=== PATIENT | male | born 1965 | race African-American/Black ===

== ENCOUNTER 2017-08-08 12:21 | Emergency (ER) | payer SELFPAY ==
[~2017-08-08] VITALS: Ht 190.5 cm; Wt 107.0 kg
[2017-08-08 12:23] VITALS: Ht 190.5 cm; Wt 107.0 kg
[2017-08-08 14:50] VITALS: BP 142/74
== END 2017-08-08 14:50 | disposition home or self-care (01) ==
LOC: ED 12:21
DX: S06.0X9A Concussion with loss of consciousness of unspecified duration, initial encounter (principal); M25.562 Pain in left knee; R03.0 Elevated blood-pressure reading, without diagnosis of hypertension; W18.39XA Other fall on same level, initial encounter; Y93.89 Activity, other specified; Y92.89 Other specified places as the place of occurrence of the external cause; Y99.8 Other external cause status
CPT/HCPCS: J1885

== ENCOUNTER 2020-09-01 21:12 | Inpatient (IN) | payer OTHER, SELFPAY ==
[~2020-09-01] VITALS: Ht 190.5 cm; Wt 98.1 kg
--- NOTE | 2020-09-01 21:49 | NUR ---
RT BEDSIDE FOR ABG
[2020-09-01 22:09] LABS: BASOPHIL % 0.4 % (0.2-1.5); PLATELET COUNT 188 x10^3mcL (152-348); RED CELL DISTRIBUTION WIDTH 14.2 % (12.1-16.2)
[2020-09-01 22:21] LABS: UA SPECIFIC GRAVITY >=1.030 (1.005-1.035); microscopic required? YES; urine erythrocyte TRACE (NEGATIVE)
[2020-09-01 23:22] LABS: CALCIUM 8.6 mg/dL (8.5-10.1); CARBON DIOXIDE 26.4 mmol/L (21-32); CHLORIDE SERUM 106 mmol/L (98-107); CREATININE SERUM 1.1 mg/dL (0.7-1.3); GFR1 > 60 mL/min; GLUCOSE SERUM 126 mg/dL (74-106); POTASSIUM SERUM 3.6 mmol/L (3.5-5.1); SODIUM SERUM 141 mmol/L (136-145)
[2020-09-01 23:27] LABS: ALKALINE PHOSPHATASE 74 U/L (46-116); ALT/SGPT 51 U/L (16-63); AST/SGOT 22 U/L (15-37); BILIRUBIN TOTAL 0.4 mg/dL (0.20-1.00); C REACTIVE PROTEIN 0.7 mg/dL (<=0.9); LACTIC DEHYDROGENASE (LDH) 232 U/L (100-190); TOTAL PROTEIN, SERUM 7.2 g/dL (6.4-8.2)
[2020-09-01 23:28] LABS: ALBUMIN 3.2 g/dL (3.4-5.0)
--- NOTE | 2020-09-01 23:57 | NUR ---
PT TAKEN TO CT SCAN
--- NOTE | 2020-09-02 00:07 | NUR ---
PT RETURN FROM CT SCAN
--- NOTE | 2020-09-02 00:58 | NUR ---
PT LAYING IN POSITION OF COMFORT, IN NO ACUTE DISTRESS AT THIS TIME, AAO TO PERSON, PLACE, TIME, AND PURPOSE, ON FULL MEDICAL BILLER/CODER VITAL SIGNS STABLE, 2L NS BOLUS INFUSING, AND AZITHROMYCIN 500mg INFUSING AT 250mL/HR, BED IN LOW POSITION AND LOCKED, BOTH SIDE RAILS UP, CALL LIGHT WITHIN REACH, PROVIDED PT WITH A WARM BLANKET.
--- NOTE | 2020-09-02 01:25 | NUR ---
PT MEDICATED PER MD ORDER, DECADRON 10mg IVP, PT TOLERATED WITHOUT ANY INCIDENTS.
--- NOTE | 2020-09-02 01:40 | NUR ---
REPORT GIVEN TO MARVIN SUN, AWAITING BELKIS RESULTS.
--- NOTE | 2020-09-02 01:45 | NUR ---
RECEIVED CALL FROM PHARMACY REGARDING DR. ROLAND ORDER FOR VANCOMYCIN, PHARMACY RECOMMENDED VANCOMYCIN DOSE OF 1000mg x1 OR WAIT FOR AM PHARMACY, CALLED DR. ROLAND REGARDING PHARMACY RECOMMENDATION, DR. ROLAND VERBAL ORDER TO WAIT FOR AM PHARMACY.
--- NOTE | 2020-09-02 02:48 | NUR ---
recevied pt from ED on gurnry. pt transferred with rn's present. pt a/o x4, denies pain or chest pain. pt on 5l nc and saturation 98%. tele 51 with NSR.pt pleasant and cooperative, presents with mild sob when talking but no acute distress. pt reports BM yesterday before admission to ED. All needs met at this time, bed low and locked with call light in reach. Overseeing preceptee Maribeth in care for pt. will continue to monitor
[2020-09-02 04:51] VITALS: BP 125/74
--- NOTE | 2020-09-02 05:07 | NUR ---
PT TOLERATING NC WELL AT 5L. NO ACUTE DISTRESS. PT RUNNING ABX PER ORDER IN LAC AND TOLERAING WELL. NO OTHER CONCERNS AT THIS TIME, WILL CONTINUE TO MONITOR AND PREPARE TO ENDORSE CARE TO DAY RN
--- NOTE | 2020-09-02 05:35 | NUR ---
I HAVE OVERVEIWED CARE AND DOCUMENTATION OF ASHLEIGH SETH RN, I AGREE WITH ALL CHARTING.
[2020-09-02 05:52] VITALS: BP 113/64
--- NOTE | 2020-09-02 07:30 | NUR ---
PT IS AAOX4, TELE [address] READING NSR, HR 72. RESP E/U. ON 02 N/C AT 5LPM. LUNG SOUNDS DIMINISHED BILATERAL BASES. IVF RUNNING TO LAC. SITE FLUSHED AND PATENT, DRESSING CDI. PT DENIES PAIN. CALL LIGHT WITHIN REACH. BED IN LOWEST POSITION.
[2020-09-02 09:12] VITALS: BP 121/61
[2020-09-02 12:05] VITALS: BP 125/71
--- NOTE | 2020-09-02 13:04 | NUR ---
ZOSYN IVPB INITIATED AT THIS TIME. RESP EVEN AND UNLABORED. PT
--- NOTE | 2020-09-02 13:16 | NUR ---
PT TITRATED TO 3LPM, O2 SAT AT 96%. RESP EVEN AND UNLABORED. NO RESP DISTRESS NOTED. SCHEDULED ZOSYN IVPB INITIATED. DENIES PAIN. WILL CONTINUE TO MONITOR.
--- NOTE | 2020-09-02 14:03 | NUR ---
REPORTED TO DR. ROSE PT'S LACTIC ACID NOW 3.7. NO NEW ORDERS.
--- NOTE | 2020-09-02 15:37 | NUR ---
1000ML FLUID BOLUS INITITATED AT THIS FOR LACTIC ACID 3.7.
--- NOTE | 2020-09-02 17:18 | NUR ---
REPORTED TO DR. RUIZ THAT PT HAS DUPLICATE LACTIC ACID ORDER. DR. RUIZ STATED TO D/C ORDER. NO NEW LACTIC ORDER IS NEEDED AT THIS TIME. IF ONE IS NEEDED IT WILL BE ORDERED IN THE MORNING. ORDER CARRIED OUT.
[2020-09-02 18:23] VITALS: BP 117/70
--- NOTE | 2020-09-02 18:29 | NUR ---
RESP EVEN AND UNLABORED. N/C 3LPM IN PLACE. NO RESP DISTRESS NOTED. TELE [address] READING NSR. IV CATH TO LAC S/L. FLUSHED AND PATENT. NO S/S OF INFECTION OR INFILTRATION. DENIES PAIN. CALL LIGHT WITHIN REACH. BED IN LOWEST POSITION. WILL ENDORSE ALL CARE TO ROSE GRADER RN.
[2020-09-02 19:21] VITALS: BP 124/65
--- NOTE | 2020-09-02 19:43 | NUR ---
RECEIVED PT FROM DAY SHIFT RN. PT ASLEEP, RESTING IN BED. NO ACUTE DISTRESS NOTED. PT IS CURRENTLY ON 3L NC WITH O2SAT @94%. PT HAS DIMINISHED LUNG SOUNDS IN BILAT BASES. PT DENIES ANY CHEST PAIN, SOB. DAY SHIFT RN PROVIDED TYLENOL @1950 FOR C/O OF HEADACHE. PT STATED HEADACHE WAS GOING AWAY. PT HAS IV IN LAC 20G. PATENT. ALL SAFETY MEASURES IN PLACE. BED IN LOWEST POSITION. CALL LIGHT WITHIN REACH. WILL CONTINUE TO MONITOR.
--- NOTE | 2020-09-02 20:07 | NUR ---
I AM OVERVIEWING CARE AND DOCUMENTATION OF PRECEPTEE DORINDA SUN. PT A/O X4 AND ON 3L NC WITH NO DISTRESS. PT STATES HE IS TIRED SINCE HE HASNT BEEN ABLE TO SLEEP. PT HAS MELATONIN SCHEDULED FOR PM MEDICATIONS. PT DENIES ANY PAIN AT THIS TIME, COMPAINTS OF HEADACHE DURING AM SHIFT. ALL NEEDS MET AT THIS TIME, WILL CONTINUE TO MONITOR AND OVERSEE CARE
--- NOTE | 2020-09-03 00:22 | NUR ---
PT RESTING IN ROOM, NO ACUTE DISTRESS NOTED. WILL CONTINUE TO MONITOR AT THIS TIME.
[2020-09-03 05:13] VITALS: Ht 190.5 cm; Wt 98.1 kg
[2020-09-03 05:16] VITALS: BP 110/62
--- NOTE | 2020-09-03 05:50 | NUR ---
I HAVE REVIEWED THE DOCUMENTATION AND CARE DONE BY DORINDA SUN AND AGREE WITH ALL CHARTING
--- NOTE | 2020-09-03 06:09 | NUR ---
PT SLEPT THROUGH THE NIGHT WITHOUT COMPLAINTS. PT CURRENTLY RESTING IN BED. PT IS ALERT AND ORIENTED X4. PT IS ON TELE#51 WITH NSR. PT HAS BILAT DIMINISHED LUNG SOUNDS IN BASES WITH CLEAR BREATH SOUNDS IN THE UPPER LOBES. PT IS CURRENTLY ON 3L NC WITH O2SAT AT 95%. NO ACUTE DISTRESS NOTED AT THIS TIME. PT HAS AN IV IN THE LAC 20G. IV INFUSING NS AT 10ML/HR. ALL SAFETY PRECAUTIONS IN PLACE. BED IN LOWEST POSITION. CALL LIGHT WITHIN REACH. WILL CONTINUE TO MONITOR.
[2020-09-03 07:09] LABS: BASOPHIL % 0.3 % (0.2-1.5); PLATELET COUNT 215 x10^3mcL (152-348); RED CELL DISTRIBUTION WIDTH 14.5 % (12.1-16.2)
[2020-09-03 07:20] LABS: CALCIUM 8.5 mg/dL (8.5-10.1); CHLORIDE SERUM 107 mmol/L (98-107); GFR1 > 60 mL/min; GLUCOSE SERUM 131 mg/dL (74-106); POTASSIUM SERUM 3.8 mmol/L (3.5-5.1); SODIUM SERUM 140 mmol/L (136-145)
[2020-09-03 08:00] VITALS: BP 138/79
--- NOTE | 2020-09-03 08:00 | NUR ---
RECEIVED PATIENT ALERT AND ORIENTED TIMES FOUR. PATIENT HAS BEEN WITH DIMINISHED BREATH SOUNDS BUT DENIES CHEST PAIN OR SOB AT THIS TIME. PATIENT HAS BEEN OOB AND TOLERATED WELL WITHOUT 02. PATIENT ON 02 VIA NASAL CANNULA AT 2 LITES AND WAS APPARENTLY ON 02 AT HOME AND PATIENT HAS STRONG PULSES, WITH ACTIVE BOWEL SOUNDS. [facility] AND RECEIVED REMDESIVIR AND CONVALESCANT PLASMA BOTH AT THIS TIME. VITALS ARE STABLE AT 138/74,94, 96, 97.7. PATIENT HAS BEEN WTIH NOTED LABS OF THE H AND H OF 10.02/23, AND THE PATIENT HAD RECEIVED BOLUS IN THE ER FOR SEPSI ON ARRIVAL. HE AHD BEEN ON VANCO AND ZOSN ANDNO ADVERSE REACTION NOTED. WILL CONTINUE TO MONITOR INDICTED.
--- NOTE | 2020-09-03 10:27 | NUR ---
PATIENT TOLERATED UP TO THE RESTROOM AND BACK ANDNO NOTED ACUTE RESPIRATORY DISTRESS NOTED.
--- NOTE | 2020-09-03 14:02 | NUR ---
PATIENT IMPLIES HE IS READY TO GO HOME. SO FAR NO ORDERS FOR DISCHARGE HAS BEEN RECEIVED. PATIENT CONTINUED ON THE VANCO AND THE ZOSYN ORDERED.
[2020-09-03 17:46] VITALS: BP 113/70
--- NOTE | 2020-09-03 19:31 | NUR ---
PATIENT LYING SUPINE TRACY POSITION AWAKE WATCHING TV. A/O X 4. FOLLOW COMMAND AND ABLE TO COMMUNICATE HIS NEEDS. TELE#51. ON 2L N/C WITH BUBBLER. DIMINISHED LUNG SOUNDS. O2 SAT 97%. NO ACUTE RESPIRATORY DISTRESS NOTED. NO EDEMA. PULSES +2 ON BUE AND BLE. AMBULATORY TO BATHROOM. LAST BM ON 09/03/20. VOIDS IN THE URINAL. SKIN INTACT. NO C/O PAIN AT THIS TIME. LFA #20G INTACT AND RUNNING 10 ML/HR NS TKVO. CALM AND COOPERATIVE. BED AT THE LOWEST POSITION. CALL LIGHT WITHIN REACH. WILL CONTINUE TO MONITOR.
--- NOTE | 2020-09-03 19:39 | NUR ---
PATIENT WANTED TO HOLD ON MELATONIN UNTIL 2300. WILL GIVE MELATONIN AT 2300 INSTEAD OF AT 2100. ALSO, PATIENT REFUSED THE COLACE FOR THIS SHIFT.
[2020-09-03 21:38] VITALS: BP 102/63
--- NOTE | 2020-09-04 03:47 | NUR ---
PATIENT STATED THAT HE WAS UNABLE TO FALL ASLEEP BECAUSE HE KEPT VOIDING ALL NIGHT. PATIENT WAS USING URINAL FOR VOIDING. EDUCATED PATIENT TO DRINK WATER TO FLUSH OUT ANTIBIOTICS. WILL CONTINUE TO MONITOR.
[2020-09-04 06:23] VITALS: BP 107/64
--- NOTE | 2020-09-04 06:38 | NUR ---
PATIENT UNABLE TO SLEEP COMFORTABLY. PATIENT ON 2 L N/C WITH BUBBLER. NO ACUTE RESPIRATORY DISTRESS DURING MIXING PLACE SUPERVISOR. CALM AND COOPERATIVE. EDUCATED PATIENT TO DRINK WATER TO NEGATE NEPHROTOXICITY OF ANTIBIOTICS ADMINISTERED. WILL ENDORSE TO THE INCOMING A.M. NURSE.
--- NOTE | 2020-09-04 08:00 | NUR ---
PATIENT AWARE HE IS BEING DISCHARGED BUT UNABLE TO GETA RIDE TILL FIVE TODAY.PATEINT HAS BEEN STABLE ANDNOINDICATION OF ACUTE RESPIRATORY DISTRESS. IV REMAINS IN PLACE. PATEINT HAS DIMINISHED BREATH SOUNDS AND BOWEL SOUNDS ACTIVE. TOLERATED OOB AND BRP. TOLERATED DIET AND FLUIDS WELL. PATIENTS VITALS AT THIS TIME AT 97.7,54,18,107/64, 96%, 20. TAMMYNET HAS NOTED LABS OF AHD OF 10.8/31, AND PATIENT HAS FERRITIN LEVELOF 345.1.PATIENT IS ON ZOSYN AND VANCO AND RECEIVED SOLUMEDROL ORDERED. PATIENT HAS BEEN ON LOVENOX.NO ACTIVE BLEEDING SEEN.
[2020-09-04 08:13] LABS: BASOPHIL % 0.3 % (0.2-1.5); PLATELET COUNT 244 x10^3mcL (152-348); RED CELL DISTRIBUTION WIDTH 14.4 % (12.1-16.2)
[2020-09-04 08:43] LABS: CALCIUM 8.5 mg/dL (8.5-10.1); CARBON DIOXIDE 28.2 mmol/L (21-32); CHLORIDE SERUM 106 mmol/L (98-107); GFR1 > 60 mL/min; GLUCOSE SERUM 163 mg/dL (74-106); POTASSIUM SERUM 4.1 mmol/L (3.5-5.1); SODIUM SERUM 143 mmol/L (136-145)
[2020-09-04 08:53] VITALS: BP 110/71
[2020-09-04] MEDS ORDERED: VENTOLIN H0.09 MG/A1 INH (10:13)
[2020-09-04] MEDS ORDERED: PRE20 PO (10:13)
--- NOTE | 2020-09-04 11:00 | NUR ---
PATIENT RESTING QUIETLY AND NO COMPLAINTS OF SOB OR PAIN AT THIS TIME.
[2020-09-04 12:02] VITALS: BP 112/81
--- NOTE | 2020-09-04 14:28 | NUR ---
PATIENT HAS BEEN ADVISED THATHEISTO NOT BE DISCHARGED TODAY BUT RATHER TOMORROW PER THE PULMONARY. PATIENT IS VERY ANGERY BUT IS GOINGTOSTAY. RESTARTED HIS IV DUE TO LEAKING OF THE SITE. RUNNINGTHE REST OF THE MIGNON QUINTERO FOLLOW UPWITH THE MINNIEN ORDERED.
[2020-09-04 17:08] VITALS: BP 103/60
--- NOTE | 2020-09-04 18:19 | NUR ---
PATIENT HASBEENSTABLEANDINNOACTURERESPIRATOYR DISTRESS. GAVETHEVACOMANDTHEZOSYN ANDPATEIENT IS TO START THE PREDNISONE TOMORROW.
--- NOTE | 2020-09-04 19:35 | NUR ---
RECEIVED PT FROM DAYSVTFT NURSE. PT IS AAOX4, DENIES HEADACHE/NAUSEA/DIZZINESS. PT IS TELE #51, NSR, DENIES CHEST PAIN. PULSES ARE EQUAL BIALTERALLY, NO EDEMA NOTED, ON LOVENO SQ. PT HAS BILATERALLY DIMINISHED LUNG SOUNDS, ON 2L NC, DENIES SOB. NO ACUTE DISTRESS NOTED, EVEN AND UNLABORED BREATHING. ABDOMEN IS SOFT AND ROUND, NO PAIN UPON PALPATION. NORMOACTIVE X4 QUADRANTS, LAST BM 09/04. PT VOIDS FREELY, DENIES PAIN UPON URINATION. PT DENIES GENERALIZED WEAKNESS. SKIN IS DRY AND INTACT, NO LESIONS NOTED. IV TO RIGHT HAND 22G, SITE INTACT, NO REDNESS OR SWELLING OBSERVED. PT IS CALM AND COOPERATIVE. ALL SAFETY MEASURES IN PLACE. BED IN LOWEST POSITION, CALL LIGHT WITHIN REACH. WILL CONTINUE TO MONITOR.
[2020-09-04 20:47] VITALS: BP 110/69
--- NOTE | 2020-09-05 01:03 | NUR ---
PATIENT RESTING WITH EYES CLOSED. PATIENT REMAINS ON 2L NC, DENIES SOB/CHEST PAIN. NO ACUTER DISTRESS NOTED AT THIS TIME. ALL SAFETY MEASURES IN PLACE. BED IN LOWEST POSITION, CALL LIGHT WITHIN REACH. WILL CONTINUE TO MONTIOR.
--- NOTE | 2020-09-05 05:48 | NUR ---
PATIENT RESTING INTERMITTENTLY WITH EYES CLOSED. PT REMAINS ON 2L NC, DENIES SOB/CHEST PAIN. PT REMAINS ON TELE #51, NSR. NO ACUTE DISTRESS NOTED AT THIS TIME. ALL SAFETY MEASURES IN PLACE. BED IN LOWEST POSITION, CALL LIGHT WITHIN REACH. WILL CONTINUE TO MONITOR AND ENDORSE TO DAYSHIFT NURSE AT APPROPRIATE TIME.
[2020-09-05 06:02] VITALS: BP 109/73
--- NOTE | 2020-09-05 08:00 | NUR ---
PATIENT AWAKE AND ALERT. RESPONDS TO SOUND. A&OX4. BED LOCKED IN LOWEST POSITION WITH CALL LIGHT IN REACH. IV PATENT WITH NS RUNNING KVO AT 10ML/HOUR. NO SIGN OF PAIN OR DISTRESS. DENIES NEEDING ANYTHING AT THIS TIME. POSSIBLE DISCHARGE TODAY.
[2020-09-05 08:09] LABS: BASOPHIL % 0.5 % (0.2-1.5); PLATELET COUNT 232 x10^3mcL (152-348); RED CELL DISTRIBUTION WIDTH 14.3 % (12.1-16.2)
[2020-09-05 08:23] LABS: CALCIUM 8.5 mg/dL (8.5-10.1); CARBON DIOXIDE 28.4 mmol/L (21-32); CHLORIDE SERUM 104 mmol/L (98-107); CREATININE SERUM 0.9 mg/dL (0.7-1.3); GFR1 > 60 mL/min; GLUCOSE SERUM 116 mg/dL (74-106); POTASSIUM SERUM 3.4 mmol/L (3.5-5.1); SODIUM SERUM 141 mmol/L (136-145)
[2020-09-05 08:28] VITALS: BP 101/67
[2020-09-05] MEDS ORDERED: LEVOFLOXACIN500 M1 PO (11:18)
[2020-09-05] MEDS ORDERED: PRE20 PO (11:18)
[2020-09-05 11:51] VITALS: BP 109/73
--- NOTE | 2020-09-05 12:32 | NUR ---
WENT OVER DISCHARGE PAPERWORK WITH PATIENT. EXPLAINED THAT MEDICATIONS WERE CALLED IN TO HIS PHARMACY ([facility]) FOR HIM TO LATHE SPOTTER. INFORMED HIM TO CALL HIS REGULAR DOCTOR (PCP) FOR FOLLOW UP IN 2-3 DAYS. PATIENT VERBALIZED UNDERSTANDING. REMOVED IV INTACT, NO PROBLEM. REMOVED TELEMETRY AND RETURNED TO TELE ROOM. PATIENT STATED HE DOES NOT HAVE A RIDE HOME EVERYONE IS AT WORK. HE IS GOING TO CALL A TAXI AND WILL LET HIS NURSE KNOW WHEN IT GETS HERE AND HE IS READY. HE SAID HE HAS KEYS TO GET INTO HIS HOME ONCE HE GETS THERE.
== END 2020-09-05 13:06 | disposition home or self-care (01) | DRG 871 ==
LOC: ED 21:12 → DU 09-02 00:24
PROVIDERS: Emergency Medicine; ADMIT Family Medicine; ATTEND Family Medicine
DX: A41.9 Sepsis, unspecified organism (principal); U07.1 COVID-19; J12.82 Pneumonia due to coronavirus disease 2019; R65.21 Severe sepsis with septic shock; J96.21 Acute and chronic respiratory failure with hypoxia; Z20.822 Contact with and (suspected) exposure to COVID-19; D64.9 Anemia, unspecified
CPT/HCPCS: 36600; 83880; 85378; 87804; G0378; J0456; J0696; J1100; J1650; J2270; J2543; J2920; J3370; J3535; J7030; J7050; J7060; J7512; Q9967; U0003